=== PATIENT | female | born 1975 | race Caucasian/White ===

== ENCOUNTER 2020-04-16 08:00 | Outpatient (RCR) | payer OTHER, SELFPAY ==
--- NOTE | 2020-03-17 16:10 | PTOPEVAL ---
PHYSICAL THERAPY EVALUATION AND PLAN OF CARE 03-17-2020 Thank you for referring Perla Trevino to [facility].?She is scheduled to be seen for therapy? 2x/week for 3 weeks, for the treatment of R knee pain/ patella femoral syndrome. Please review, sign, date and return this plan of care MARISOL. I agree with and certify that the following plan of care is medically necessary. Referring Physician Date Attending Provider: Bradley Carrizales MD *PT Outpatient Evaluation Start: 03/17/20 15:12 Document 03/17/20 15:12 MAYO (Rec: 03/17/20 16:09 MAYO [id number]) Outpatient Past Medical History Past Medical History Source of Past Medical History Patient Neurological History Hx Neurological Disorders No Significant History Cardiovascular History Hx Hypertension Yes: med Respiratory History Hx Respiratory Disorders No Significant History Gastrointestinal History Hx Gastrointestinal Disorders No Significant History Genitourinary History Hx Genitourinary Disorders No Significant History Musculoskeletal History Hx Back Pain Yes: chronic back pain Hx Other Musculoskeletal Disorders Yes: pain L knee and B hips; multiple sprains R&L ankle, pain R foot Hematological History Hx Hematological Disorders No Significant History Endocrine History Hx Endocrine Disorders No Significant History HEENT History Hx HEENT Disorders No Significant History Other History Hx Other Medical Conditions Yes: obesity- wt 250#; working on wt loss Hx Other Surgeries Yes: R&L carpal tunnel,R ulnar release; Evaluation Information Problem Diagnosis R knee pain Onset November 2019 Subjective Information no recent injury or falls; Query Text:As Reported By Patient/ history of R and L knee pain; Family after weather started getting hot, knee was tight and started hurting Diagnostic Tests X-Rays For This Problem Yes: per pt- mild degenerative changes Prior Level of Function Activity Level (Last 3 Months) 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
--- NOTE | 2020-04-08 15:55 | PCPTNOTE ---
pt did not show for today's reevaluation appt; called pt and left voice mail message;
--- NOTE | 2020-04-16 08:41 | PTOPEVAL ---
PHYSICAL THERAPY DISCHARGE 04-16-2020 Refer to clinical summary below for her discharge summary. Thank you for referring Perla Trevino to [facility]. Please review, sign, date and return this discharge MARISOL. I agree with and certify that the following plan of care is medically necessary. Referring Physician Date Attending Provider: Bradley Carrizales MD *PT Outpatient Discharge Document 04/16/20 08:05 MAYO (Rec: 04/16/20 08:41 MAYO [id number]) Subjective Information Perla reports: been doing Query Text:As Reported By Patient/ exercises; been busy at work, Family walking and doing more, so knee little irritated, but doing OK; agrees to discharge PT; Pain Assessment Timing of Pain Assessment Timing of Pain Assessment Assessment Pain Scale Pain Scale Used Numeric (1 - 10) Self Report Pain Assessment Right Knee(s) Reported Pain Level 1 Pain Description Aching Pain Frequency Chronic Lowest Pain Intensity 0 Greatest Pain Intensity 3 Pain Aggravating Factors Stair Climbing,Walking,Weight Bearing/Standing Other Pain Aggravating Factors fast, constant movement at work Pain Relief Interventions Used By Exercise,Ice,Inactivity/Rest, Patient Medication Other Alleviating Interventions taking meds for general pain in back, abdomen Additional Pain Comments after working about 5 hr notice more pain in knee Pain Score Pain Score 1: Self Report Additional Pain Score Comments knee is not as swollen or tight as was; changes in weather increase knee pain; leukotape helps pain--applied with strip over lateral patella to improve patellar tracking more medial; educated pt and she is going to purchase tape to apply herself Lower Extremity Muscle Strength Testing General Lower Extremity Strength Gross Lower Extremity Strength single leg standing R x 12 seconds standing B small squat to ~ 45 ' knee flexion, 10 reps; supine stretch: R and L piriformis- cross midline of trunk, ITB stretch in side lying with leg over edge of mat and in
== END 2020-05-31 10:05 | disposition home or self-care (01) ==
LOC: ANHPT 08:00
PROVIDERS: PCP Emergency Medicine; Visit Provider Emergency Medicine
DX: M25.561 Pain in right knee (principal)
CPT/HCPCS: 97110; 97161

== ENCOUNTER 2024-01-08 08:00 | Outpatient (RCR) | payer OTHER, SELFPAY ==
--- NOTE | 2023-12-03 09:54 | OPREHPOC ---
Outpatient Therapy Plan of Care This is a Multidisciplinary Plan of Care that may contain components documented by all disciplines (PT, OT, and ST.) PT Problem 1 PT Problem #1 Knowledge Deficit PT Goal 1 Goal Hamblen with HEP Target Visit 4 PT Problem 2 PT Problem #2 Pain PT Goal 1 Goal Reports no shoulder pain greater than 2/10 when sleeping to improve duration and frequency Target Visit 8 PT Problem 3 PT Problem #3 Impaired Range of Motion PT Goal 1 Goal Achieve terminal knee extension bilaterally Target Visit 8 PT Goal 2 Goal Patient will demonstrate no shoulder pain with active ROM flexion to full 170+ degrees Target Visit 8 PT Problem 4 PT Problem #4 Impaired Strength PT Goal 1 Goal Improve R shoulder flexion strength to 4+/5 to improve mechanical lifting ability Target Visit 8 PT Goal 2 Goal Improve quan shoulder external rotation strength to 4+/5 to improve capsular stability Target Visit 8 PT Problem 5 PT Problem #5 Impaired Gait PT Goal 1 Goal Ambulate with even stride length bilaterally Target Visit 8
--- NOTE | 2023-12-03 09:55 | PTOPEVAL1 ---
Assessment and note entered by Ronny Mejia, PT Evaluation Information Assessment Status Evaluation Diagnosis Right shoulder pain, Right knee pain Onset November 2022 Subjective Information Reports that she has had achy pain with activity and with rest. Better with rest. Feels that at this time her shoulder is a bigger issue. Knee is mostly bothering her with a lot of stairs or activity. Pain at night until she is able to get comfortable. Sleeps with her arm under her pillow sleeping on shoulder. Pain radiates to elbow but not past. 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 She has to climb 2 flights of stairs on her way to work. Reported Pain Level Pain Score 0: Self Report Assessment PT Clinical Summary Patient presents with decreased capsular mobility of R knee with minor lack in ROM most notably terminal motion of extension. Weak tight hips are present. Shoulder symptoms consistent with shoulder impingement. Minor to no ROM loss but weakness is present. Will benefit from skilled therapy to address these deficits to improve gross function and pain relief. Plan of Care Interventions Electrical Stimulation,Manual Therapy,Neuro Re- education,Therapeutic Activities,Therapeutic Exercise PT Services Indicated Yes Treatment Frequency and 2x/week for 8 visits Duration These treatments will address the objective and functional deficits as defined above. The patient will be advanced safely and appropriately in order for the patient to progress towards his/her prior level of function. Additional exercises will be introduced and as well as a comprehensive home exercise program upon discharge, if needed, ?to ensure carryover of functional gains achieved in the clinic. This treatment plan has been reviewed and agreement upon by the patient.
--- NOTE | 2024-01-03 15:38 | PCPTNOTE ---
pt called and canceled today's appointment.
--- NOTE | 2024-01-08 08:47 | PTOPDC ---
Assessment and note entered by Katie Lucio, PT Discharge Report Assessment Status Discharge Diagnosis Right shoulder pain, Right knee pain Onset November 2022 Subjective Information things are better, as long as I do my stretches; hip and shoulder are better; Reported Pain Level Pain Score Self Report Additional Pain Score Comments pain range in the past week: of R hip 1-4/10 and R shoulder 1-4/10; pain increases with rainy weather; when first wake up in AM and end of the day; stairs decrease pain: soak hot bath tub; stretches, ice at end of day over hip and low back; tylenol with sleeping--position self on her R side, with arm at 90' angle, increase to 3/10 Assessment PT Clinical Summary Perla has received 7 PT sessions. She called/ canceled 2 appointments. Compared to the initial evaluation: R shoulder pain from 0-8/10 to 1-4/10; sleeping tolerance improved with ability to lie on her R shoulder; increase strength of R shoulder and R LE; education completed for HEP and posture; The goals were partially met. Discharge PT services. She is to continue with her HEP and posture correction during work day. Plan of Care PT Services Indicated No
== END 2024-01-08 09:24 | disposition home or self-care (01) ==
LOC: ANHPT 08:00
PROVIDERS: PCP Emergency Medicine; Visit Provider Emergency Medicine
DX: M75.81 Other shoulder lesions, right shoulder (principal); M25.561 Pain in right knee
CPT/HCPCS: 97014; 97110; 97140; 97161; 97530; G0283